=== PATIENT | male | born 1940 | race African-American/Black ===

== ENCOUNTER 2016-10-18 07:07 | Day surgery (SDC) | payer MEDICARE, OTHER ==
[~2016-10-18 07:07] MED LIST: ACTOPLUS M15 MG/850 PO; ASA5GR PO; CAT2 PO; COLCH6 PO; COREG3 PO; DIOVAN320 MG PO; FISH-EPA1000 MG PO; GLUCOPHAGE1000 MG PO; GLUCPH PO; INDOCIN SR75 MG PO; ISOSORB DIN30 MG PO; KLOR-CON M2020 MEQ PO; L20 PO; MULTIPLE VIT PO; NORV10 PO; PEP20 PO; PRIN20 PO; TIMOLOL MAL0.5 % OPH; XALAT OPH; ZOCOR40 PO
== END 2016-10-18 16:04 | disposition home or self-care (01) ==
LOC: SDC 07:07
PROVIDERS: Orthopaedic Surgery
PROC: B01BZZZ Fluoroscopy of Spinal Cord (ICD-10-PCS; 2016-10-18)
PROC: 3E0R3BZ Introduction of Anesthetic Agent into Spinal Canal, Percutaneous Approach (ICD-10-PCS; principal; 2016-10-18 08:00)
DX: M54.16 Radiculopathy, lumbar region (principal); I10 Essential (primary) hypertension; E78.00 Pure hypercholesterolemia, unspecified; K21.9 Gastro-esophageal reflux disease without esophagitis; E11.9 Type 2 diabetes mellitus without complications; Z98.890 Other specified postprocedural states
CPT/HCPCS: 82962; J1040; J2250; J3010; Q9967